=== PATIENT | male | born 1935 | race Two or more races ===

== ENCOUNTER 2018-02-23 23:37 | Inpatient (IN) | payer MEDICARE ==
[~2018-02-23] VITALS: Ht 177.8 cm; Wt 77.1 kg
--- NOTE | 2018-02-23 23:42 | NUR ---
PT TO ER BED 5. BBRA [id number] FROM HOME C/C LOWER EXTREMITY WEAKNESS X 7 DAYS. -DIZZY. 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 VSS/RESP EVEN UNLABORED/NAD NOTED/SKIN WARM AND DRY/AFEBRILE/DENIES N-V-D/AOX4. AWAITNG MD ORTIZ. AT BEDSIDE.
--- NOTE | 2018-02-24 00:15 | NUR ---
EMT AT BEDSIDE FOR SIDE.
[2018-02-24] MEDS ORDERED: IV NS 0.9% 1,000 ML BAG IV ONE ×2 (00:30→03:30)
--- NOTE | 2018-02-24 00:34 | NUR ---
20G IV TO R HAND X 1 ATTEMPT USING ASEPTIC TECH, BLOOD CULT X 2 AND BLOOD HANDED OVER TO THE LAB AT BEDSIDE. IV FLUSHES EASILY WITH NS, NO S/S INFILTRATION NOTED AT THIS TIME.
--- NOTE | 2018-02-24 00:36 | NUR ---
PT TO CT VIA STRETCHER.
[2018-02-24 00:37] LABS: EOSINOPHILS % (AUTO) 0.1 % (0.0-6.0); HEMATOCRIT 34 % (39-51); HEMOGLOBIN 10.9 g/dL (13.5-17.5); LYMPHOCYTES # (AUTO) 0.4 /CMM (0.8-4.8); LYMPHOCYTES % (AUTO) 3.5 % (20.0-44.0); MEAN CORPUSCULAR HEMOGLOBIN 30 PG (26.0-33.0); MEAN CORPUSCULAR HGB CONC 32 g/dl (31.0-36.0); MEAN CORPUSCULAR VOLUME 92 fL (80-96); MONOCYTES # (AUTO) 0.4 /CMM (0.1-1.30); MONOCYTES % (AUTO) 3.7 % (2.0-12.0); NEUTROPHILS # (AUTO) 9.7 /CMM (1.8-8.9); NEUTROPHILS % (AUTO) 92.7 % (43.0-81.0); PLATELET COUNT (AUTO) 285 /CMM (150-450); RDW COEFFICIENT OF VARIATION 14.6 (11.5-15.0); RED BLOOD CELL COUNT(AUTO) 3.66 MIL/uL (4.5-6.0); WHITE BLOOD COUNT (AUTO) 10.5 K/uL (4.3-11.0)
[2018-02-24 00:52] LABS: TROPONIN I < 0.017 ng/mL (0.00-0.056)
--- NOTE | 2018-02-24 00:53 | NUR ---
PT BACK FROM CT.
[2018-02-24 00:59] LABS: ALANINE AMINOTRANSFERASE 6 U/L (12-78); ALBUMIN 1.9 g/dL (3.4-5.0); ALKALINE PHOSPHATASE 71 U/L (46-116); ASPARTATE AMINOTRANSFERASE 13 U/L (15-37); BILIRUBIN,DIRECT 0.2 mg/dL (0.0-0.2); BILIRUBIN,TOTAL 0.5 mg/dL (0.2-1.0); CALCIUM, SERUM 8.7 mg/dL (8.5-10.1); CARBON DIOXIDE 25 mmol/L (21-32); CHLORIDE 93 mmol/L (98-107); CREATININE 1.8 mg/dL (0.6-1.3); POTASSIUM 4.2 mmol/L (3.5-5.1); SODIUM SERUM 127 mmol/L (136-145); TOTAL PROTEIN, SERUM 6.2 g/dL (6.4-8.2); UREA NITROGEN, BLOOD 39 mg/dL (7-18)
[2018-02-24 01:00] LABS: GLUCOSE 399 mg/dL (74-106)
[2018-02-24] MEDS ORDERED: INSULIN REGULAR, HUMAN 100 UNIT/ML 10 ML VIAL ONE (01:16)
[2018-02-24] MEDS ORDERED: INSULIN REGULAR, HUMAN 100 UNIT/ML 10 ML VIAL SQ ONE (01:30)
[2018-02-24] MEDS ORDERED: ACETAMINOPHEN ES 500 MG TABLET ONE (03:28)
[2018-02-24] MEDS ORDERED: ACETAMINOPHEN 325 MG TABLET PO ONE (03:30)
--- NOTE | 2018-02-24 03:36 | NUR ---
UNABLE TO OBTAIN URINE, PT REFUSED A F/C. MADE AWARE, NO NEW ORDERS RECEIVED.
--- NOTE | 2018-02-24 03:40 | NUR ---
REPORT GIVEN TO PIYUSH NARVAEZ FOR KARON.
--- NOTE | 2018-02-24 03:50 | NUR ---
PT TRANSPORTED VIA STRETCHER TO TELE 115 ON HAND EMBROIDERER WITH RN PER ACLS PROTOCOL. VSS.
[2018-02-24 04:00] VITALS: BP 124/69
--- NOTE | 2018-02-24 05:15 | NUR ---
EAR NOSE AND THROAT SPECIALIST NOTES RECEIVED PT FROM ED. PT A&O X4. PT C/O OF NO PAIN BUT GEN WEAKNESS . PT ORIENTED TO ROOM AND FLOOR. PT HAS A R HAND #20 G S/L. PIC TAKEN. PT PLACED ON POOL CLEANER, HR 85. WILL CONT TO MONITOR.
--- NOTE | 2018-02-24 06:54 | NUR ---
RN CLOSING NOTES PT IN STABLE CONDITION, NO SIGNIFICANT CHANGES NOTED ON THIS SHIFT. VSS. ALL SAFETY PRECAUTIONS TAKEN. WILL ENDORSE TO AM RN.
[2018-02-24 07:00] VITALS: BP 127/77
[2018-02-24 08:00] VITALS: BP 127/77
--- NOTE | 2018-02-24 08:00 | NUR ---
RADIO INTERFERENCE TROUBLE SHOOTER NOTES RECVD PT IN BED ALERT, ORIENTED X4, NOT IN DISTRESS , ROOM AIR NO SHORTNESS OF BREATH NOTED, ON TELE MONITOR SR 81. HEP LOCK RIGHT HAND. NO S/SX INFECTION. RECHECKED BS 351 MG\DL CALLED DR AMAYA. NOTIFIED OF BS 351 MG/DL. MODERATE SLIDING SCALE W/ REG INSULIN AND DIABETIC DIET. UA COLLECTED ORDERED. KEPT CLEAN AND DRY. BED LOWEST LOCKED POSITION. CALLED KITCHEN FOR BREAKFAST. WILL CONTINUE TO MONITOR CLOSELY.
[2018-02-24] MEDS ORDERED: CALC0.5C11 PO (08:13)
[2018-02-24] MEDS ORDERED: METF500T6 PO (08:13)
[2018-02-24] MEDS ORDERED: DUTA0.5C15 PO (08:13)
[2018-02-24] MEDS ORDERED: ATOR40TA PO (08:13)
[2018-02-24] MEDS ORDERED: LEVO125T8 PO (08:13)
[2018-02-24] MEDS ORDERED: METO-356 PO (08:13)
[2018-02-24] MEDS ORDERED: DEXTROSE 50%-WATER 50 ML DISP.SYRIN IV PRN (08:30)
[2018-02-24] MEDS ORDERED: *INSULIN REGULAR(HUMULIN R)HUM 100 UNIT/ML VIAL SQ PRN (08:30)
[2018-02-24] MEDS ORDERED: INSULIN REGULAR, HUMAN 100 UNIT/ML 3 ML VIAL SQ PRN (08:30)
--- NOTE | 2018-02-24 09:45 | NUR ---
AUTO BODY REPAIRMAN NOTES PT AND WANTS TO GO AMA. PT STATED HIS MED RECORDS IN [facility]. EXPLAINED BENEFIT OF STAYING HERE, MEDICATION AND ELEVATED BLOOD SUGAR LEVELS: BS 400 MG/DL AT TIME OF LEAVING HOSPITAL, STILL WANTS TO GO. TELE REMOVED AND HEPLOCK REMOVED. DR VILLAFUERTE NOTIFIED. CHARGE NURSE AND PLATINUMSMITH NOTIFIED. DISCHARGE PAPERS AMA GIVEN. VALUABLES FORM SIGNED. LEFT HOSPITAL IN WHEELCHAIR WITH CUSTOM STOCK MAKER AND .
[2018-02-24] MEDS ORDERED: BLOOD SUGAR DIAGNOSTIC 1 EACH STRIP VI SCH (12:00)
[2018-02-24 15:41] LABS: APPEARANCE,URINE Cloudy (CLEAR); BILIRUBIN,URINE Negative (NEGATIVE); BLOOD, URINE Moderate Ery/uL (NEGATIVE); COLOR,URINE Yellow (YELLOW); KETONES,URINE 15 (NEGATIVE); LEUKOCYTE ESTERASE ,URINE Large (NEGATIVE); NITRITE, URINE Negative (NEGATIVE); PH,URINE 6.5 (5.0-8.0); PROTEIN,URINE >=300 mg/dl (NEGATIVE); UGLUCOSE 500 MG/DL mg/dL (NEGATIVE); UROBILINOGEN,URINE 0.2 EU/dL (0.2)
[2018-02-24 15:53] LABS: BACTERIA,URINE Many /HPF (None Seen); SQUAMOUS EPITHELIAL CELL,UR Few /HPF (None Seen); WBC,URINE TOO NUMEROUS TO COUN /HPF (0-3)
== END 2018-02-24 10:05 | disposition left against medical advice (07) | DRG 682 ==
LOC: ER 23:39 → TELE1 02-24 03:44
PROVIDERS: ADMIT Family Medicine; ATTEND Family Medicine
DX: N17.0 Acute kidney failure with tubular necrosis (principal); E43 Unspecified severe protein-calorie malnutrition; E87.1 Hypo-osmolality and hyponatremia; E11.65 Type 2 diabetes mellitus with hyperglycemia; Z85.46 Personal history of malignant neoplasm of prostate; Z79.84 Long term (current) use of oral hypoglycemic drugs; Z79.899 Other long term (current) drug therapy; E86.1 Hypovolemia; D63.8 Anemia in other chronic diseases classified elsewhere
CPT/HCPCS: 36415; 70450-TC; 71045-TC; 80048-TC; 80076-TC; 81000-TC; 82962-TC; 84484-TC; 85025-TC; 87081-TC; 87086-TC; 87186-TC; A4606; J1815; J7030; Z7610